=== PATIENT | male | born 1975 | race Caucasian/White ===

== ENCOUNTER 2016-06-08 10:31 | Emergency (ER) ==
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
[2016-06-08 12:07] LABS: MANUAL DIFF NEEDED? NO
[2016-06-08 12:08] LABS: BASO% 0.5 % (0.0-0.8); EOS# 0.21 X1000 (0.0-0.7); EOS% 1.5 % (0.0-10.0); HEMATOCRIT 44.8 % (42.0-52.0); HEMOGLOBIN 15.6 g/dL (14.0-18.0); IMM GRAN# 0.03 X1000 (0.0-0.04); IMM GRAN% 0.2 % (0.0-0.5); LYMPH% 18.9 % (20.5-51.1); MCH 31.8 PG (27-31); MCHC 34.8 g/dL (33-37); MCV 91.4 FL (81-99); MONO# 1.46 X1000 (0.11-0.59); MONO% 10.6 % (1.7-9.3); NEUT% 68.3 % (42.2-75.2); PLT 406 X1000 (130-400)
[2016-06-08 12:22] LABS: AMYLASE 45 U/L (20-200); LIPASE 29 U/L (13-60)
[2016-06-08 12:24] LABS: AGAP 9; ALBUMIN 4.7 g/dL (3.5-5.0); ALKALINE PHOSPHATASE 109 U/L (32-122); BUN 10 mg/dL (8-22); CALCIUM 10.1 mg/dL (8.8-10.2); CHLORIDE 101 mmol/L (98-107); COSMO 275; GOT 34 U/L (10-34); GPT 44 U/L (10-44); POTASSIUM 3.7 mmol/L (3.5-5.1); SODIUM 138 mmol/L (136-145); TCO2 28 mmol/L (25-35); TOTAL PROTEIN 7.4 g/dL (6.3-8.3)
--- NOTE | 2016-06-08 13:22 | Diag Imaging Result Document ---
PROCEDURE NAME: FLAT/UPRIGHT ABD/1 VIEW CHEST - 06/08/2016 FLAT AND UPRIGHT ABDOMEN: FINDINGS: There is no evidence of bowel obstruction organomegaly or mass. No abnormal calcifications are present. IMPRESSION: No acute disease. PA CHEST: There is a calcified granuloma in the lateral right lung. No previous studies are available for comparison. IMPRESSION: No acute disease.
--- NOTE | 2016-06-08 13:24 | Diag Imaging Result Document ---
PROCEDURE NAME: LUMBAR SPINE - 06/08/2016 LUMBOSACRAL SPINE SERIES WITH OBLIQUES, 6 VIEWS: FINDINGS: The disk spaces are well maintained. There is no evidence of fracture or subluxation and pedicles are intact. IMPRESSION: No evidence of acute disease.
[2016-06-08] MEDS ORDERED: TORADOL IM ONE (13:27)
[2016-06-08 13:29] LABS: URINE SOURCE CLEAN CATCH
[2016-06-08 13:39] LABS: BILIRUBIN URINE NEGATIVE (NEGATIVE); BLOOD URINE NEGATIVE (NEGATIVE); CLARITY CLEAR (CLEAR); COLOR YELLOW; GLUCOSE URINE NEGATIVE (NEGATIVE); LEUKOCYTES URINE TRACE (NEGATIVE); NITRITE URINE NEGATIVE (NEGATIVE); PROTEIN URINE TRACE mg/dL (NEGATIVE); UROBILINOGEN URINE NORMAL
[2016-06-08 14:13] LABS: URINE CULTURE PL NEEDED? YES; URINE EPITHELIAL CELLS <10 /HPF (<10); URINE WBC <10 /HPF (<10)
[2016-06-08 14:54] VITALS: BP 134/74
== END 2016-06-08 14:54 | disposition home or self-care (01) ==
LOC: P.ED 10:31
DX: S39.012A Strain of muscle, fascia and tendon of lower back, initial encounter (principal); N30.00 Acute cystitis without hematuria; R10.9 Unspecified abdominal pain; M54.5 Low back pain; V43.52XA Car driver injured in collision with other type car in traffic accident, initial encounter; F17.210 Nicotine dependence, cigarettes, uncomplicated; Z71.6 Tobacco abuse counseling
CPT/HCPCS: 72110; 74022; 80053; 81001; 82150; 83690; 85025; 87088; 96372; J1885